=== PATIENT | female | born 1990 | race Caucasian/White ===

== ENCOUNTER 2020-02-08 22:04 | Emergency (ER) | payer OTHER, SELFPAY ==
[2020-02-08 22:05] VITALS: BP 155/95; PULSE 100; RESP 18; TEMP 36.2; O2SAT 99; BMI 41.1
--- NOTE | 2020-02-08 22:40 | ED.VIS.GEN ---
History of Present Illness Chief Complaint: Dental Informant: Patient Narrative: 29-year-old female with no significant past medical history presents with concern for dental pain. States it began over the past 1 day. States that she suffers from bruxism and had fracture to an existing filling on the top right molar. States that she has had aching pain since that time. No relieving or worsening factors. Denies any fever, chills, headache, vision change, neck pain. Past Medical History - Allergies and Home Meds Allergies/Adverse Reactions: Allergies Penicillins [PCN] Adverse Reaction (Verified 02/08/20 22:07) Other Primary Care Physician: Christopher Tran MD [Primary Care Provider] - Past Medical History: None Surgical History: no surgical history Lives: With Family Smoking Status: Light Smoker (<10/day) Alcohol: None Drugs: None Review of Systems General: Denies: Chills, Fever, Sweats Eyes: Denies: Visual changes - bilaterally, Diplopia ENT: Reports: - - Dental pain. Denies: Rhinorrhea, Sore throat Cardiovascular: Denies: Chest pain, Palpitations Respiratory: Denies: Dyspnea, Cough, Dyspnea on exertion Gastrointestinal: Denies: Abdominal pain, Nausea, Vomiting, Diarrhea, Melena, Hematochezia Genitourinary: Denies: Dysuria, Hematuria, Frequency Musculoskeletal: Denies: Back pain, Extremity Pain Skin: Denies: Rash, Wounds Neurological: Denies: Headache, Weakness, Numbness Physical Exam Vital Signs/Narrative: Vital Signs Temp Pulse Resp BP Pulse Ox 02/08/20 22:05 97.2 F L 100 18 155/95 H 99 Inital Vital Signs reviewed: Yes General: Well nourished, Well developed, No Acute Distress Head: Normocephalic, Atraumatic Eyes: Perrl, EOMI ENT: Moist mucous membranes, No rhinorrhea, - - Presents of right first molar filling which is fractured. No evidence of periapical abscess. Neck: Supple, Nontender Cardiovascular: Regular rate, Regular rhythm, No murmurs Respiratory: No distress, CTA bilaterally, Chest nontender Abdomen: Soft, Nontender, Nondistended, Normal bowel sounds Back: Nontender, Normal Inspection Extremities: Nontender, No edema Skin: Normal color, No rash Neurological: Alert, Oriented x3, Cranial nerves II-XII grossly intact, Normal Strength, Normal Sensation Psychological: Normal affect, Normal Mood Diagnostic/Tx/Re-eval - Medical Decision Making Patient appears well and nontoxic. Patient has evidence of a fractured filling. No abscess formation. Dental block was performed using approximately 4 mL's of bupivacaine. She was given intramuscular Toradol as well as first dose of penicillin VK. Patient will be given naproxen and penicillin for home. Asked to return for new or worsening symptoms. Patient agreeable and discharged home in stable condition. Pression: 1. Dental pain 2. Fractured dental filling ED Disposition - Plan for ED Patient: Disposition: Home or Assisted Living Instructions: ED Tooth Pain Referrals: Christopher Tran MD [Primary Care Provider] -
[2020-02-08] MEDS: Ketorolac 15 MG/ML Vial IM (22:47)
[2020-02-08] MEDS: Clindamycin HCl 150 MG Capsule 300 MG PO (22:47)
[2020-02-08] MEDS: Bupivacaine Mpf 0.5% 30 ML VIAL INFILT (23:28)
[2020-02-08 23:42] VITALS: RESP 16
== END 2020-02-08 23:42 | disposition home or self-care (01) ==
PROVIDERS: Emergency Provider Emergency Medicine; PCP Family Medicine
DX: K08.89 Other specified disorders of teeth and supporting structures (principal); S02.5XXA Fracture of tooth (traumatic), initial encounter for closed fracture; X58.XXXA Exposure to other specified factors, initial encounter; Y93.89 Activity, other specified; Y92.9 Unspecified place or not applicable; Y99.9 Unspecified external cause status; F17.200 Nicotine dependence, unspecified, uncomplicated; Z88.0 Allergy status to penicillin
CPT/HCPCS: 64999; 96372; 99283

== ENCOUNTER 2024-05-07 11:09 | Emergency (ER) | payer BC, SELFPAY ==
[2024-05-07 11:10] VITALS: BP 108/75; PULSE 105; RESP 16; TEMP 36.9; O2SAT 98
[2024-05-07 11:12] VITALS: BMI 34.2
--- NOTE | 2024-05-07 11:34 | RAD_ITS ---
INDICATION: Pain/Injury EXAMINATION/TECHNIQUE: X-RAY - LEFT XR Tibia/Fibula 2 Views 2 VIEWS COMPARISON: No relevant prior comparison study available FINDINGS: BONES: The ankle was not completely included in the study, separate ankle series was obtained concurrently and reported separately. Oblique fracture of the distal fibula is partially included and better assessed on the ankle series. No other fracture demonstrated. JOINTS: No dislocation. SOFT TISSUES: Unremarkable. RAD/Tibia & Fibula 2 Views IMPRESSION: Distal fibular fracture partially included. Please see report of ankle series for details. No other evidence of fracture. Electronically Signed: Denisa Sung MD at 12:12 [facility] ,
--- NOTE | 2024-05-07 11:34 | RAD_ITS ---
INDICATION: PAin/Injury EXAMINATION/TECHNIQUE: X-RAY - LEFT XR Ankle Min 3 Views 3 VIEWS COMPARISON: No relevant prior comparison study available FINDINGS: BONES: Acute oblique fracture of the distal fibula with minimal posterior displacement of the distal fragment. Calcaneal spurs at the plantar and posterior Achilles insertion sites. JOINTS: No dislocation. SOFT TISSUES: Soft tissue swelling overlying the lateral malleolus. RAD/Ankle min 3 Views IMPRESSION: Acute distal fibular fracture. Electronically Signed: Denisa Sung MD at 12:10 EST ,
--- NOTE | 2024-05-07 12:05 | EDS_ITS ---
HPI History of Present Illness Chief Complaint: Lower Extremity Injury Narrative Narrative: Chief complaint and HPI: Left ankle injury. 33-year-old female presents for evaluation of left ankle pain after an injury. Patient states she works nights. She states this morning around 3 AM she fell down a couple steps. She immediately developed pain in the left ankle with swelling. Most of her pain is located at her lateral malleolus. Patient states she has been unable to apply weight or ambulation to the ankle. She has been taking ibuprofen. She denies any numbness or tingling. Denies hitting her head. No LOC. Not on blood thinners. Denies injury to any other part of the body. Review of systems: See HPI Medications: As listed on the chart Allergies: As listed on the chart PFSH: Per chart Vital signs: As listed on the chart. Reviewed. Physical exam: Gen: A&O x3, NAD Head: Normocephalic, atraumatic Eyes: No sclera icterus, conjunctiva clear ENT: Moist mucous membranes Neck: Full range of motion CV: Regular rate Resp: Nonlabored respiration Musc: Full ROM of all extremities except for the left ankle secondary to pain, left ankle is swollen with ecchymosis-most of this is located at the lateral malleolus where the patient has tenderness, knee nontender to palpation, DP/PT pulses plus 2 out of 4, sensation intact, good capillary refill, no Achilles tenderness, heel//foot nontender, mild tenderness to palpation of the calf Skin: Warm, dry Neuro: Alert, oriented, grossly intact, sensation intact Psych: Cooperative, appropriate mood and affect [facility] Medical History (Updated 05/07/24 @ 14:[address] Len Bailey, ) Hypercholesteremia Home Medications ?Medication ?Instructions ?Recorded ?Last Taken ?Type fenofibrate nanocrystallized 48 mg 145 mg PO 02/08/20 Unknown History tablet buspirone 10 mg tablet 10 mg PO TID 05/07/24 Unknown History oxycodone 5 mg capsule 5 mg PO Q6H PRN pain 3 days #12 05/07/24 Unknown Rx caps sertraline 100 mg tablet 100 mg PO DAILY 05/07/24 Unknown History varenicline 1 mg tablet 1 mg PO BID 05/07/24 Unknown History Allergy/AdvReac Type Severity Reaction Status Date / Time Penicillins (PCN) AdvReac Other Verified 05/07/24 11:10 Surgical History (Updated 05/07/24 @ 11:17 by Martha Farrell) No pertinent past surgical history Social History Smoking Status: Former smoker EXAM Physical Exam Const Vital Signs: 05/07/24 11:10 05/07/24 14:50 Temperature 98.5 F 98.2 F Temperature Source Oral Pulse Rate 105 H 95 Respiratory Rate 16 18 Blood Pressure 108/75 130/106 H Blood Pressure Mean 86 114 Pulse Ox 98 99 Oxygen Delivery Method Room Air MDM MDM MDM Narrative Medical decision making narrative: 37-year-old female presents for evaluation of left ankle pain after left ankle injury. Differential diagnosis includes fracture versus sprain. X-rays of the left ankle and tib-fib obtained. Patient declined pain medication. X-rays were personally interpreted/reviewed by myself ED physician. Patient has a distal fibula fracture of the left ankle. Patient ordered IM fentanyl. Patient's fracture was reduced and splinted. See below procedure note. Postreduction x- rays ordered. Postreduction x-rays were personally interpreted/reviewed by myself, ED physician. Distal fibula fracture shows improvement in fracture alignment. Patient stable to discharge home. Patient grabbed her crutches from home and brought them in. They were measured appropriately for her. Patient was educated on nonweightbearing. Splint cannot get wet. Follow-up with orthopedics. She confirmed understanding the plan. Tylenol and Motrin as needed for pain. Patient given a short prescription of oxycodone for severe pain. Splint application and fracture reduction Indication: Left distal fibula fracture Consent: Risks, benefits, and alternatives discussed with patient and consent obtained Procedure: The patient was given a total of 50 mcg of fentanyl IM prior to reduction and splint. Reduction was achieved to the best of my abilities utilizing traction technique. Following reduction, immobilization was performed using splint. Patient was placed in a posterior and stirrup splint using cotton roll with extra padding to bony prominences, fiberglass was used with Skip wrap. The extremity's neurovascular status was re-checked and was unchanged from the pre-procedure exam. The patient tolerated the procedure without complications. Impression: 1. Left distal fibula fracture 2. Splinted with reduction Radiography Diagnostic Testing: Clinical Impression(s) from Imaging Studies Ankle X-Ray 05/07/24 11:34 IMPRESSION: Acute distal fibular fracture. Electronically Signed: Denisa Sung MD at 12:10 EST , Tibia/Fibula X-Ray 05/07/24 11:34 IMPRESSION: Distal fibular fracture partially included. Please see report of ankle series for details. No other evidence of fracture. Electronically Signed: Denisa Sung MD at 12:12 EST , Ankle X-Ray 05/07/24 13:40 IMPRESSION: Distal fibular fracture in cast with improved alignment. Electronically Signed: Denisa Sung MD at 14:26 EST , Discharge Plan Triage Chief Complaint: Lower Extremity Injury ED Provider: Len Bailey Dx/Rx/DC Orders Clinical Impression: Fracture of distal end of fibula Instructions: ED Ankle Fracture, ED Ankle Fracture, Distal Fibula Prescriptions: New oxycodone 5 mg capsule 5 mg PO Q6H PRN (Reason: pain) 3 Days Qty: 12 0RF No Action fenofibrate nanocrystallized 48 MG tablet 145 mg PO sertraline 100 mg tablet 100 mg PO DAILY buspirone 10 mg tablet 10 mg PO TID varenicline 1 mg tablet 1 mg PO BID Primary Care Provider: Christopher Tran Referrals: Jesse Gandhi DO [Med Staff - Active Staff] - 3-5 Days Christopher Tran MD [Primary Care Provider] - 3-5 Days Activity Restrictions/Additional Instructions: Ibuprofen and Motrin as needed for pain. Oxycodone for severe pain. Follow-up with orthopedics. You are not to walk or weight-bear on your left leg. Splint needs to remain on at all times and not to get wet. Print Language: Nepali Disposition Disposition: Home, Self Care Discharge Date/Time: 05/07/24 14:57
[2024-05-07] MEDS: fentaNYL 100 MCG/2 ML Ampul 50 MCG IV (13:09)
--- NOTE | 2024-05-07 13:40 | RAD_ITS ---
INDICATION: s/p splint and reduction EXAMINATION/TECHNIQUE: X-RAY - LEFT XR Ankle Min 3 Views 3 VIEWS COMPARISON: Prior study dated: Earlier same day FINDINGS: BONES: Exam through cast. Fracture of the distal fibula again demonstrated, in near-anatomic alignment. JOINTS: No dislocation. SOFT TISSUES: Soft tissue swelling laterally.. RAD/Ankle min 3 Views IMPRESSION: Distal fibular fracture in cast with improved alignment. Electronically Signed: Denisa Sung MD at 14:26 EST ,
[2024-05-07 14:50] VITALS: BP 130/106; PULSE 95; RESP 18; TEMP 36.8; O2SAT 99
== END 2024-05-07 14:57 | disposition home or self-care (01) ==
PROVIDERS: Emergency Provider Surgery; PCP Family Medicine; Visit Provider Surgery
DX: S82.402A Unspecified fracture of shaft of left fibula, initial encounter for closed fracture (principal); Z87.891 Personal history of nicotine dependence; E78.00 Pure hypercholesterolemia, unspecified; W10.9XXA Fall (on) (from) unspecified stairs and steps, initial encounter
CPT/HCPCS: 27788; 73590; 73610; 96374; 99282

== ENCOUNTER 2024-07-10 16:00 | Outpatient (RCR) | payer BC, SELFPAY ==
--- NOTE | 2024-06-26 12:59 | HP.PTEVAL_ITS ---
Patient's Visit Information Visit Information Visit Information: SEBASTIEN FOFANA is a 34 year old F referred to Physical Therapy by Dr. Jesse Gandhi DO with a diagnosis of FRACTURE PF UPPER AND LOWER END LEFT FIBULA. Date of Evaluation: 06/26/24 Physical Therapist: Zev Rider, PT, Cert MDT, OCS Visit Plan Frequency: 2x /Week Duration: 6 Weeks Plan: CAM BOOT WBAT LLE OKAY TO REMOVE FOR THERAPY PT INTERVENTIONS FLEXABILITY G-S ,AROM ANKLE ,STRENGTHENING EX'S ANKLE STABILIZERS , MANUAL THERAPY ANKLE JOINT ,AND PROPRIOCEPTION Subjective Subjective: This 34 y/o female presents to physical therapy with fracture of distal fibula. Patient left fx fibula on 05/07/24 slipped on steps .Went to ER x-rays showed fx fibula fx. Patient was place in splint and kneeling scooter and crutches. Patient seen DR Gandhi Dec [address] hard cast NWB left. Patient seen 05/20/24 cont with NWB LLE and kneeling scooter . Then 05/27/24 removed patients cast and applied a new cast. She will be non-weightbearing for an additional 2 weeks. On 06/12/23 transition into a tall cam boot. Patient continue non weightbearing for another week, then for 1 week she can move to 50% weight bearing, then after another week (3rd week) she can move on to full weight bearing in the boot. She can remove the boot for physical therapy . X-rays looked good. See next Saturday07/03/24 . Patient no pain. Stiffness Denies paresthesia/tingling. Sleeping okay. Patient return to work Saturday. Patient condition affects QOL and function . Patient goals to walk normal. SOCIAL: VOCATION: [employer] Objective Objective: POSTURE: pes planus EDEMA: absent GAIT:ambulates with cam boot WBAT LLE NEURO: denies paresthesia/tingling AROM: dorsiflexion 0 degrees ,inversion 40 degrees ,plantarflexion 50 degrees ,eversion 5 degrees MMT: ( peak force) anterior tibialis 12.7 ,peroneus 10.9 ,G-S 13.9 ,posterior tibialis 11.7 PROPRIOCEPTION: poor FLEXABILITY: G-S mildmod tight Balance/Special Test Scores Lower Extremity Functional Score: 42 Goals Goal 1:: Patient to be I with HEP for ankle Goal Time Frame: 4-6 Weeks Goal 2:: Patient to improve AROM ankle by 5-10 degrees to improve gait Goal Time Frame: 4-6 Weeks Goal 3:: Patient to normalize gait Goal Time Frame: 4-6 Weeks Goal 4:: Patient to improve peak force ankle stabilizers by 5-10 # to improve function Goal Time Frame: 4-6 Weeks Goal 5:: Patient to improve LFES score by 5-10# to improve gait and function. Goal Time Frame: 4-6 Weeks Rehabilitation Potential Physical Therapy Diagnosis: This patient has left distal fibula fx 05/07 with decrease gait ,ROM ,strength and proprioception thus benefit from skilled PT Rehabilitation Potential: Good Anticipated Interventions Patient/Client Instruction: Educate patient on: Condition and Plan of Care For the Purpose of:: To decrease pain, To increase ROM, To improve muscle performance and motor function, To improve ability to perform ADL's, To increase tolerance to activity/condition/position, To improve ability of physical actions for home/community/work/leisure, To improve gait and locomotor functions, To improve health of tissue, To decrease soft tissue restriction, To increase flexibility/ROM, To reduce risk of recurrence and To prevent re-injury Therapeutic Exercise to Include: Strength training, Balance training, Postural training, Flexibilty training, Gait and locomotor training and Active ROM For the Purpose of:: To decrease pain, To increase ROM, To improve nutrient delivery to tissue, To increase oxygenation perfusion, To improve muscle performance and motor function, To improve ability of physical actions for home/community/work/leisure, To improve health of tissue, To decrease soft tissue restriction and To increase flexibility/ROM Manual Therapy Techniques to Include: Mobilization Comment: ANKLE For the Purpose of:: To decrease pain, To increase ROM, To improve muscle performance and motor function, To improve ability to perform ADL's, To increase tolerance to activity/condition/position, To improve ability of physical actions for home/community/work/leisure, To improve gait and locomotor functions, To improve health of tissue, To decrease soft tissue restriction, To increase flexibility/ROM, To improve endurance and To improve balance Text: Thank you for the opportunity to evaluate your patient. For Medicare and Medicare HMO plans, please review the plan of care and approve it. It will need to be FAXED BACK to us at [phone] for Medicare purposes. For Medicare only, by signing this I certify the plan of care. Please let me know if there are questions or concerns regarding this plan of care. Physician Signature: Date:
--- NOTE | 2024-10-14 09:04 | HP.PTDCNRP_ITS ---
Patient Information Patient Information: SEBASTIEN FOFANA was seen in my office for initial evaluation on 06/26/24. The following Plan of Care was established for this patient: POC Established Initial Frequency: 2x /Week Initial Duration: 6 Weeks Anticipated Interventions Patient/Client Instruction: Educate patient on: Condition and Plan of Care For the Purpose of:: To decrease pain, To increase ROM, To improve muscle performance and motor function, To improve ability to perform ADL's, To increase tolerance to activity/condition/position, To improve ability of physical actions for home/community/work/leisure, To improve gait and locomotor functions, To improve health of tissue, To decrease soft tissue restriction, To increase flexibility/ROM, To reduce risk of recurrence and To prevent re-injury Therapeutic Exercise to Include: Strength training, Balance training, Postural training, Flexibilty training, Gait and locomotor training and Active ROM For the Purpose of:: To decrease pain, To increase ROM, To improve nutrient delivery to tissue, To increase oxygenation perfusion, To improve muscle performance and motor function, To improve ability of physical actions for home/community/work/leisure, To improve health of tissue, To decrease soft tissue restriction and To increase flexibility/ROM Manual Therapy Techniques to Include: Mobilization Comment: ANKLE For the Purpose of:: To decrease pain, To increase ROM, To improve muscle pe rformance and motor function, To improve ability to perform ADL's, To increase tolerance to activity/condition/position, To improve ability of physical actions for home/community/work/leisure, To improve gait and locomotor functions, To improve health of tissue, To decrease soft tissue restriction, To increase flexibility/ROM, To improve endurance and To improve balance Last Seen Last Seen: This patient was last seen in our office . Pertinent comments regarding their Physical therapy will appear below: Patient seen for PT for fx of fibula for HEP for ROM,strength and gait thus is d/c At this point I will be discontinuing this patient from physical therapy. I would be happy to see this patient again in the future if found appropriate by the physician. Thank you! Zev Rider, PT, Cert MDT, OCS Balance/Gait/Functional tests Balance/Special Test Scores Lower Extremity Functional Score: 42
== END 2024-07-10 19:00 | disposition home or self-care (01) ==
LOC: PT 16:00
PROVIDERS: PCP Family Medicine; Referring Provider Orthopaedic Surgery; Visit Provider Orthopaedic Surgery
DX: S82.832D Other fracture of upper and lower end of left fibula, subsequent encounter for closed fracture with routine healing (principal)
CPT/HCPCS: 97110; 97161

== ENCOUNTER 2024-07-17 01:48 | Emergency (ER) | payer BC, SELFPAY ==
[2024-07-17 01:49] VITALS: BP 146/94; PULSE 82; RESP 18; TEMP 36.9; O2SAT 98; BMI 33.5
[2024-07-17 02:08] LABS: Bacteria 0 SEEN /hpf (None Seen); Mucous, Urine 0 SEEN /hpf (<or=2+); Red Blood Cells-Urine 0 SEEN /hpf (0-5); Squamous Epithelial Cells - UA 0 SEEN /hpf (5-10)
[2024-07-17 02:10] LABS: Absolute Lymphocyte Count 5.03 X10^3/uL (0.83-4.51); Absolute Neutrophil Count 3.8 X10^3/uL (2.0-7.7); Basophil# 0.08 X10^3/uL; Basophil% 0.8 % (0-1); Eosinophil# 0.14 X10^3/uL; Eosinophils% 1.4 % (0-5); Hematocrit 39.3 % (37-47); Lymphocyte # 5.03 X10^3/ul (0.83-4.51); Lymphocyte % 50.6 % (19-41); Mean Corp Hgb Conc 33.1 g/dL (32-36); Mean Corpuscular Hgb 31.2 pg (27.0-32.0); Mean Corpuscular Volume 94.2 fL (81-99); Mean Platelet Vol. 8.9 fl (6.2-12.0); Monocyte# 0.87 X10^3/uL; Monocyte% 8.8 % (0-10); NRBC Flagged by Analyzer 0 % (0-5); Neutrophil # 3.79 X10^3/uL (2.7-7.7); Neutrophil % 38.1 % (47-70); POSITIVE DIFFERENTIAL YES; Platelet Count 374 K/mm3 (150-450); RBC Distribution Width CV 13.1 % (11.6-14.6); RBC Distribution Width SD 45.2 fl (35.1-43.9); Red Blood Count 4.17 M/mm3 (4.2-5.4); White Blood Count 9.9 K/mm3 (4.4-11.0)
--- NOTE | 2024-07-17 02:11 | ED.VIS.GI ---
HPI HPI - GI History of Present Illness Chief Complaint: Abd Pain Informant: patient and spouse/S.O. Narrative Narrative: Presents increasing epigastric abdominal pain over the last couple hours. She ate [employer] peanut butter cups prior. Prior to that I had toes. She first noticed symptoms back in 2013 pain that wraps around her upper abdomen. She was never evaluated. She been having more increased frequency over the last 6 months. She states pain will come in the middle of the night. She has been using [id number] acid reducers. Denies black or bloody stools. Denies any urinary symptoms. Last menstrual period 2 months ago, states she is abnormal. Denies nausea or vomiting. Prior similar symptoms: Yes PFSH [facility] Medical History Depression Anxiety Hypercholesteremia Home Medications ?Medication ?Instructions ?Recorded ?Last Taken ?Type sertraline 100 mg tablet 100 mg PO DAILY 05/07/24 Unknown History atomoxetine 40 mg capsule 40 mg PO QAM 05/11/24 Unknown History rosuvastatin 10 mg tablet 10 mg PO QHS 05/11/24 Unknown History buspirone 15 mg tablet 15 mg PO 3XD 07/17/24 Unknown History cholecalciferol (vitamin D3) 1,250 1,250 mcg PO QWEEK 07/17/24 Unknown History mcg (50,000 unit) capsule doxycycline monohydrate 100 mg 100 mg PO BID 07/17/24 Unknown History tablet fenofibrate nanocrystallized 145 145 mg PO DAILY 07/17/24 Unknown History mg tablet Allergy/AdvReac Type Severity Reaction Status Date / Time Penicillins (PCN) AdvReac Other Verified 07/17/24 01:48 Surgical History No pertinent past surgical history Social History Smoking Status: Former smoker ROS ROS ED Constitutional Constitutional ED: Denies chills, fever(s) or sweats ENT ENT ED: Denies sore throat Cardiovascular Cardiovascular: Denies chest pain, leg edema, palpitations or racing heartbeat Respiratory/Chest Respiratory/Chest: Denies cough, dyspnea or dyspnea on exertion Gastrointestinal Gastrointestinal: Reports abdominal pain; Denies diarrhea, nausea or vomiting Genitourinary Genitourinary ED: Denies dysuria, hematuria or urinary frequency Musculoskeletal Musculoskeletal: Denies back pain, extremity pain or neck pain Integumentary Denies rash or wounds Neurologic Neurologic: Denies headache(s), paresthesias or weakness EXAM Physical Exam Const Vital Signs: 07/17/24 01:49 07/17/24 02:41 Temperature 98.4 F Temperature Source Oral Pulse Rate 82 79 Respiratory Rate 18 16 Blood Pressure 146/94 H 134/90 H Blood Pressure Mean 111 104 Pulse Ox 98 96 Oxygen Delivery Method Room Air Room Air Positive well nourished and well developed General Appearance ED: well developed and NAD HEENT Reports moist mucous membranes normocephalic and atraumatic Eyes General Eye ED: Yes normal appearance of both eyes Neck full ROM Chest Wall Chest: Negative for tenderness Resp normal respiratory effort and normal air movement Effort and Inspection: symmetric chest movement; Negative for respiratory distress Cardio regular rate, regular rhythm and no murmurs Peripheral Pulses: pulses 2+ throughout GI normal to inspection, nondistended, normoactive bowel sounds GI Narrative: Mild epigastric tenderness. No guarding or rebound. Negative Ayala's or McBurney's tenderness. Palpation: Negative for guarding or rebound tenderness present Extremity normal to inspection General Extremety ED: Negative for edema or tenderness General Extremity: Negative for edema Neuro oriented x3 and no sensory deficits noted Sensorium / Orientation: awake and alert Skin no rashes or lesions noted and no wounds MDM MDM MDM Narrative Medical decision making narrative: Interventions / MDM: Differential diagnosis: Gastritis, biliary colic Diagnosis considered but do not suspect: No clinical cholecystitis My EKG interpretation: N/A Imaging independently reviewed and interpreted by myself: N/A External documents reviewed: N/A Test considered but not ordered:N/A ED course: Epigastric tenderness exam. Symptoms started after eating milk chocolate. Symptoms subsiding. Negative Ayala's or McBurney's tenderness. Will check abdominal labs, Pepcid ordered. Will reevaluate. 0245: Symptoms subsided labs are normal. Patient reports her symptoms seem to occur couple hours after she eats. Discussed could be a early biliary colic symptoms. She has no clinical cholecystitis. Discussed with her she is using her omeprazole only as needed. She should be on this daily. She has a follow-up with her PCP tomorrow discussed outpatient ultrasound for further evaluation. She will avoid greasy foods, fatty foods, dairy foods in the meantime. All questions were answered. Re-evaluation: stable Disposition discussed with patient/family/significant other: Patient and significant other Case discussed with consulting clinician: N/A This note was generated with [employer] dictation software. It may contain incorrect words, spelling, and punctuation that were not noted in checking the note before signing. Lab Data Attestation: I reviewed the patient's lab results. Labs: Laboratory Results - last 24 hr 07/17/24 07/17/24 01:50 02:04 WBC 9.9 RBC 4.17 L Hgb 13.0 Hct 39.3 MCV 94.2 MCH 31.2 MCHC 33.1 RDW Std Deviation 45.2 H RDW Coeff of Jose Luis 13.1 Plt Count 374 MPV 8.9 Immature Gran % (Auto) 0.300 Neut % (Auto) 38.1 L Lymph % (Auto) 50.6 H [place] % (Auto) 8.8 Eos % (Auto) 1.4 Baso % (Auto) 0.8 Absolute Neuts (auto) 3.8 Absolute Lymphs (auto) 5.03 H Nucleated RBC % 0 Differential Comment SCANNED Reactive Lymphocytes 2+ Sodium 140 Potassium 3.6 Chloride 106 Carbon Dioxide 29.0 Anion Gap 5 BUN 21 H Creatinine 1.02 Estim Creat Clear Calc 83.79 Est GFR (MDRD) Af Amer 80 Est GFR (MDRD) Non-Af 66 BUN/Creatinine Ratio 20.6 H Glucose 88 Calcium 9.5 Total Bilirubin 0.20 Direct Bilirubin 0.07 AST 15 ALT 23 Alkaline Phosphatase 61 Total Protein 7.6 Albumin 4.0 Globulin 3.6 Lipase 77 Urine Color Yellow Urine Clarity Clear Urine pH 7.0 Ur Specific [place] 1.010 Urine Protein Negative Urine Glucose (UA) Normal Urine Ketones Negative Urine Occult Blood Negative Urine Nitrite Negative Urine Bilirubin Negative Urine Urobilinogen Normal Ur Leukocyte Esterase Negative Urine RBC 0 SEEN Urine WBC 0 SEEN Ur Squamous Epith Cells 0 SEEN Urine Bacteria 0 SEEN Urine Mucus 0 SEEN Urine Test Negative Discharge Plan Triage Chief Complaint: Abd Pain ED Provider: Ras Chua Dx/Rx/DC Orders Clinical Impression: Gastritis, Biliary colic symptom Instructions: ED Gastritis (Adult) Prescriptions: No Action rosuvastatin 10 mg tablet 10 mg PO QHS atomoxetine 40 mg capsule 40 mg PO QAM buspirone 15 mg tablet 15 mg PO 3XD cholecalciferol (vitamin D3) 1,250 mcg (50,000 unit) capsule 1,250 mcg PO QWEEK doxycycline monohydrate 100 mg tablet 100 mg PO BID fenofibrate nanocrystallized 145 mg tablet 145 mg PO DAILY sertraline 100 mg tablet 100 mg PO DAILY Primary Care Provider: Christopher Tran Referrals: Christopher Tran MD [Primary Care Provider] - Keep [place] appointment Activity Restrictions/Additional Instructions: Labs normal white count normal lipase normal liver enzymes normal pain epigastrium. Taking continue your [id number] omeprazole daily. Discussed with your doctor outpatient gallbladder ultrasound for further evaluation for possible colic symptoms symptoms occur couple hours after you eat. Avoid greasy foods, dairy foods, fatty foods. Print Language: Mongolian Disposition Disposition: Home, Self Care
[2024-07-17 02:12] LABS: Glucose, Dipstick Normal (Normal); Ketone-Dipstick Negative (Negative); Leukocyte Esterase-Dipstick Negative /ul (Negative); Nitrite-Dipstick Negative (Negative); Occult Blood-Urine Negative /ul (Negative); Protein-Dipstick Negative (Negative); Urine Bilirubin Dipstick Negative (Negative); Urine Clarity Clear (Clear); Urine Urobilinogen Normal (Normal)
[2024-07-17 02:12] LABS: Differential Indicated SCAN CRITERIA MET
[2024-07-17] MEDS: Famotidine 200 MG/20 ML MDV 20 MG in 0.9% Normal Saline (Pres. free 8 ML 300 MG IV (02:13)
[2024-07-17 02:19] LABS: Color, Urine Yellow (Yellow); White Blood Cells 0 SEEN /hpf (0-5)
[2024-07-17 02:20] LABS: Internal QC Validated? YES +Cl - CLEAR BKGD; Pregnancy, Urine Negative Negative
[2024-07-17 02:29] LABS: AST(SGOT) 15 U/L (15-37); Alanine Aminotransfer ALT/SGPT 23 U/L (13-56); Alkaline Phosphatase 61 U/L (45-117); Anion Gap 5 (5-15); BUN 21 mg/dL (7-18); BUN/Creat Ratio 20.6 RATIO (10-20); Bilirubin, Direct 0.07 mg/dL (0.00-0.30); Calcium,Total 9.5 mg/dL (8.5-10.1); Chloride 106 mmol/L (98-107); Creatinine, Serum 1.02 mg/dL (0.55-1.02); EST Glomerular Filtration Rate 66 mL/min (>60); Est Glom Filt Rate - Afr Amer 80 mL/min (>60); Estimated Creatinine Clearance 83.79 ml/min; Globulin 3.6 g/dL (2.2-4.2); Glucose 88 mg/dL (74-106); Lipase 77 U/L (73-393); Potassium 3.6 mmol/L (3.5-5.1); Protein, Total 7.6 g/dL (6.4-8.2); Sodium Level 140 mmol/L (136-145)
[2024-07-17 02:33] LABS: Differential Comment SCANNED; Reactive Lymphocyte 2+
[2024-07-17 02:41] VITALS: BP 134/90; PULSE 79; RESP 16; O2SAT 96
== END 2024-07-17 02:58 | disposition home or self-care (01) ==
PROVIDERS: Emergency Provider Emergency Medicine; PCP Family Medicine; Visit Provider Emergency Medicine
DX: K29.70 Gastritis, unspecified, without bleeding (principal); Z87.891 Personal history of nicotine dependence; E78.00 Pure hypercholesterolemia, unspecified; F41.9 Anxiety disorder, unspecified; F32.A Depression, unspecified; K80.50 Calculus of bile duct without cholangitis or cholecystitis without obstruction
CPT/HCPCS: 80048; 80076; 81001; 81025; 82653; 83630; 83690; 83993; 85025; 87177; 87209; 87493; 87506; 99282; A4216

== ENCOUNTER 2024-09-16 16:00 | Outpatient (CLI) | payer BC, SELFPAY ==
[2024-09-19 01:07] LABS: Calprotectin, Stool 22 ug/g (0-120)
[2024-09-21 01:06] LABS: Pancreatic Elastase, Fecal > 800 (>200)
== END 2024-09-16 23:59 | disposition home or self-care (01) ==
LOC: LABSPEC 09-23 08:46
PROVIDERS: PCP Nurse Practitioner Family; Visit Provider Student in an Organized Health Care Education/Training Program
DX: K21.9 Gastro-esophageal reflux disease without esophagitis (principal); R10.9 Unspecified abdominal pain; R11.2 Nausea with vomiting, unspecified; R19.7 Diarrhea, unspecified
CPT/HCPCS: 82653; 83630; 83993; 87177; 87209; 87493; 87506

== ENCOUNTER → 2024-09-25 | Outpatient (CLI) | payer BC, SELFPAY ==
--- NOTE | 2024-09-25 12:12 | NM_ITS ---
PROCEDURE: HEPATOBILLIARY IMG W/PHARM INT 09/25/2024 REASON FOR EXAM: ABDOMINAL PAIN TECHNIQUE: Intravenous Choletec with planar imaging of the abdomen. 1.7 mcg Kinevac intravenously approximately 60 minutes after the radiopharmaceutical with additional anterior imaging and a region of interest drawn around the gallbladder to calculate a time-activity curve. RADIOPHARMACEUTICAL: 5.4 mCi of technetium mebrofenin COMPARISON: None. FINDINGS: There is good uptake of the radiopharmaceutical by the liver. Normal gallbladder visualization with the gallbladder identified by 30 minutes. Gallbladder Ejection Fraction: 21 % (Normal is >35%) NM/Hepatobilliary Img w/Pharm Int IMPRESSION: Decreased gallbladder ejection fraction. Reading Location: [id number]
== END | disposition home or self-care (01) ==
LOC: NM 12:11
PROVIDERS: PCP Nurse Practitioner Family; Referring Provider Student in an Organized Health Care Education/Training Program; Visit Provider Student in an Organized Health Care Education/Training Program
DX: R10.9 Unspecified abdominal pain (principal)
CPT/HCPCS: 78227; A9537; J2805

== ENCOUNTER → 2024-09-30 | Outpatient (CLI) | payer BC, SELFPAY ==
--- NOTE | 2024-09-30 10:13 | NM_ITS ---
PROCEDURE: GASTRIC EMPTYING STUDY 09/30/2024 REASON FOR EXAM: NAUSEA COMPARISON: None. TECHNIQUE: The patient ingested a standard meal of oatmeal and 1.2 mCi of technetium labeled sulfur colloid., and water. There was no vomiting postprandially. Anterior and posterior planar images of the upper abdomen were obtained for 1 minute immediately following the meal at 1h, 2h and 4h if more than 10% of the activity persisted within the stomach. Regions of interest were drawn, and a geometric mean was used to calculate a [id number]. RADIOPHARMACEUTICAL: 1.2 mCi of technetium sulfur colloid. FINDINGS: Percent activity remaining in stomach: 1 hour 55 % (normal 37-90%) NM/Gastric Emptying Study IMPRESSION: Normal gastric emptying examination. Reading Location: [place] [id number]
== END | disposition home or self-care (01) ==
LOC: NM 10:13
PROVIDERS: PCP Nurse Practitioner Family; Referring Provider Student in an Organized Health Care Education/Training Program; Visit Provider Student in an Organized Health Care Education/Training Program
DX: R10.9 Unspecified abdominal pain (principal); R11.0 Nausea
CPT/HCPCS: 78264; A9541

== ENCOUNTER → 2024-10-13 | Outpatient (CLI) | payer BC, SELFPAY ==
[2024-10-13 09:45] LABS: Hematocrit 38.8 % (37-47); Hemoglobin 12.9 g/dL (12.0-15.0); Mean Corp Hgb Conc 33.2 g/dL (32-36); Mean Corpuscular Hgb 30.8 pg (27.0-32.0); Mean Corpuscular Volume 92.6 fL (81-99); Mean Platelet Vol. 9.1 fl (6.2-12.0); Platelet Count 307 K/mm3 (150-450); RBC Distribution Width CV 12.8 % (11.6-14.6); RBC Distribution Width SD 43.2 fl (35.1-43.9); Red Blood Count 4.19 M/mm3 (4.2-5.4); White Blood Count 4.6 K/mm3 (4.4-11.0)
[2024-10-13 10:44] LABS: Anion Gap 9 (5-15); BUN 11 mg/dL (4-19); BUN/Creat Ratio 10.8 RATIO (10-20); Calcium,Total 9.2 mg/dL (7.6-11.0); Chloride 105 mmol/L (98-108); Creatinine, Serum 0.97 mg/dL (0.70-1.20); EST Glomerular Filtration Rate 78 (>60); Glucose 106 mg/dL (70-99); Potassium 4.3 mmol/L (3.3-5.1); Sodium Level 139 mmol/L (133-145); hCG Titer Quant., Serum < 1 mIU/mL (<9 non-preg)
--- NOTE | 2024-10-13 17:38 | PCM.TILTTABL ---
Staff Staff: Cara Goel and Enma Cruz Summary Pre Test Resting HR: 77 Pre Test Resting BP: 131/86 Minimum Test HR: 89 Maximum Test HR: 120 Minimum Test BP: 105/78 Maximum Test BP: 129/84 Reason for Test Termination: Reached Maximum Test Time Physician Tilt Table Report Patient's Physicians Primary Care Physician: Renetta Dunn Indications/Diagnosis: Dizziness Procedure Comments: 34-year-old lady with a history of recurrent dizziness. Patient presents to the noninvasive lab in the postabsorptive nonsedated state. Informed consent was obtained. Initial heart rate and blood pressure were obtained with a heart rate of 77 bpm in sinus rhythm and a blood pressure of 131/86 mmHg. The patient was then put in the 70 degree head upright tilt position for a total duration of 30 minutes. Continuous EKG monitoring was performed as well as heart rate and blood pressures. The patient maintained stable blood pressures with no significant changes from baseline to warrant hemodynamic changes. In addition the heart rate asa gradually to a peak of 120 bpm after approximately 20 minutes. The patient was then put back in the recumbent position and recovered. No significant symptomatology was noted. Summary: Negative head upright tilt table testing.
[2024-10-13 17:41] VITALS: BP 105/78; BP 129/84; BP 131/86
== END | disposition home or self-care (01) ==
PROVIDERS: Internal Medicine Cardiovascular Disease; PCP Nurse Practitioner Family; Referring Provider Internal Medicine Cardiovascular Disease; Visit Provider Internal Medicine Cardiovascular Disease
DX: I95.1 Orthostatic hypotension (principal)
CPT/HCPCS: 36415; 80048; 84702; 85027; 93660; A4216

== ENCOUNTER 2024-10-18 19:08 | Emergency (ER) | payer BC, SELFPAY ==
[2024-10-18 19:09] VITALS: BP 153/103; PULSE 71; RESP 18; TEMP 36.9; O2SAT 100; BMI 30.9
--- NOTE | 2024-10-18 19:33 | ED.VIS.GI ---
HPI HPI - GI History of Present Illness Chief Complaint: Abd Pain Informant: patient and spouse/S.O. Narrative Narrative: 34-year-old female presenting with diffuse abdominal pain that started gradually today/tonight. She had a laparoscopic cholecystectomy 2 days ago at [facility], spouse provides much of the history, the patient is whispering single word sentences and information from her is extremely limited. Spouse states she has not eaten anything since her surgery, she has been drinking very little in the way of fluids, she has not passed bowel movement or flatus yet, and has taken none of her medications. She also had a headache earlier although she states that is gone now. She states she put her abdominal binder on earlier in the pain started while that was on started getting worse and she developed contractures of her hands, so she took it off but now the pain is escalated. [facility] Medical History (Updated 10/18/24 @ 22:[address] Lalo Byrne MD) Polycystic ovary disease Heart valve problem Liver disease GI problem Depression Anxiety Hypercholesteremia Home Medications ?Medication ?Instructions ?Recorded ?Last Taken ?Type sertraline 100 mg tablet 100 mg PO DAILY 05/07/24 Unknown History atomoxetine 40 mg capsule 40 mg PO QAM 05/11/24 Unknown History rosuvastatin 10 mg tablet 10 mg PO QHS 05/11/24 Unknown History buspirone 15 mg tablet 15 mg PO 3XD 07/17/24 Unknown History cholecalciferol (vitamin D3) 1,250 1,250 mcg PO QWEEK 07/17/24 Unknown History mcg (50,000 unit) capsule doxycycline monohydrate 100 mg 100 mg PO BID 07/17/24 Unknown History tablet fenofibrate nanocrystallized 145 145 mg PO DAILY 07/17/24 Unknown History mg tablet omeprazole 20 mg capsule,delayed 20 mg PO BID 09/04/24 Unknown History release Allergy/AdvReac Type Severity Reaction Status Date / Time Penicillins (PCN) AdvReac Other Verified 10/18/24 19:14 Family History Other Alcoholism Asthma Heart disease Hypertension Sexually transmitted disease Surgical History (Updated 10/18/24 @ 19:[address] Lalo Byrne MD) Hx laparoscopic cholecystectomy Social History Smoking Status: Former smoker ROS ROS ED Review of Systems ROS Unobtainable: other Details: Limited history from patient, see HPI Constitutional Constitutional ED: Reports sweats; Denies chills or fever(s) ENT ENT ED: Denies sore throat Cardiovascular Cardiovascular: Denies chest pain Respiratory/Chest Respiratory/Chest: Denies dyspnea Gastrointestinal Gastrointestinal: Reports abdominal pain and other Details: Try eating during evaluation but not prior Genitourinary Genitourinary ED: Denies dysuria or hematuria Musculoskeletal Musculoskeletal: Denies back pain or neck pain Integumentary Denies rash Neurologic Neurologic: Reports headache(s); Denies paresthesias or weakness EXAM Physical Exam Const Vital Signs: 10/18/24 19:09 10/18/24 20:03 10/18/24 21:00 Temperature 98.5 F 98.1 F 98.2 F Temperature Source Oral Oral Oral Pulse Rate 71 68 56 L Respiratory Rate 18 14 16 Blood Pressure 153/103 H 164/83 H 169/93 H Blood Pressure Mean 119 110 118 Pulse Ox 100 100 100 Oxygen Delivery Method Room Air Room Air Room Air Positive well nourished and well developed General Appearance ED: well developed HEENT Reports moist mucous membranes normocephalic and atraumatic Eyes PERRL and EOMs intact bilaterally Neck full ROM and supple Resp normal respiratory effort and clear to auscultation bilaterally Cardio regular rate, regular rhythm and no murmurs Rate: Negative for tachycardic GI non-distended GI Narrative: No rebound tenderness but diffusely tender Auscultation: hypoactive bowel sounds Palpation: soft Back/Spine no CVA tenderness General Back: other FROM Extremity normal to inspection General Extremety ED: Negative for edema, pulses abnormal or tenderness General Extremity: Negative for edema or pulses abnormal Neuro oriented x3, CN's II-XII intact bilaterally and no sensory deficits noted Sensorium / Orientation: awake and alert Motor Exam: strength 5/5 throughout Psych Mood & Affect: anxious Skin no rashes or lesions noted and no wounds MDM MDM MDM Narrative Medical decision making narrative: She is indeed hypokalemic with a potassium of 2.9, which explains the flexion contracture she was having of her hands, so while treating her pain and nausea and given IV fluids we were treating that with IV potassium chloride, and she was sent for a CT of the abdomen/pelvis. I reviewed the images and the report which I agree with, it essentially shows nothing acute, there are postoperative changes that are not unexpected such as a little stranding in the gallbladder fossa and small foci of pneumoperitoneum, as well as a significant abundance of stool in the colon. It is possible that her pain was from bowel spasm. It is possible that her hypokalemia contributed to this. However after treatment here as well as a dose of IV potassium chloride, she is doing better. She tolerating oral fluids. I see no reason to admit her or transfer her back to [facility] right now. I advised her to call her surgeon tomorrow for close outpatient follow-up and to continue to take stool softeners and laxatives and/or enemas. Lab Data Attestation: I reviewed the patient's lab results. Labs: Laboratory Results - last 24 hr 10/18/24 19:55 WBC 13.5 H RBC 4.38 Hgb 13.5 Hct 38.9 MCV 88.8 MCH 30.8 MCHC 34.7 RDW Std Deviation 41.1 RDW Coeff of Jose Luis 12.5 Plt Count 361 MPV 9.4 Immature Gran % (Auto) 0.800 Neut % (Auto) 73.4 H Lymph % (Auto) 17.3 L [place] % (Auto) 8.3 Eos % (Auto) 0.1 Baso % (Auto) 0.1 Absolute Neuts (auto) 9.9 H Absolute Lymphs (auto) 2.33 Nucleated RBC % 0 Sodium 137 Potassium 2.9 L Chloride 99 Carbon Dioxide 17.7 L Anion Gap 20 H BUN 14 Creatinine 0.81 Estim Creat Clear Calc 101.19 Est GFR (MDRD) Non-Af 98 BUN/Creatinine Ratio 17.0 Glucose 140 H Calcium 9.9 Total Bilirubin 1.17 AST 94 H ALT 109 H Alkaline Phosphatase 71 Total Protein 7.6 Albumin 4.0 Globulin 3.5 Albumin/Globulin Ratio 1.1 Lipase 21 Radiography Diagnostic Testing: Clinical Impression(s) from Imaging Studies Abdomen/Pelvis CT 10/18/24 21:17 IMPRESSION: 1. Postoperative changes cholecystectomy with expected immediate postsurgical findings, including small amount of fluid and soft tissue stranding within the gallbladder fossa, scattered foci of pneumoperitoneum and small abdominopelvic ascites. 2. Moderate colonic stool. Reading [facility] Discharge Plan Triage Chief Complaint: Abd Pain ED Provider: Lalo Byrne Dx/Rx/DC Orders Clinical Impression: Postoperative generalized abdominal pain, Acute hypokalemia Instructions: ED Hypokalemia Prescriptions: No Action rosuvastatin 10 mg tablet 10 mg PO QHS atomoxetine 40 mg capsule 40 mg PO QAM omeprazole 20 mg capsule,delayed release(DR/EC) 20 mg PO BID buspirone 15 mg tablet 15 mg PO 3XD cholecalciferol (vitamin D3) 1,250 mcg (50,000 unit) capsule 1,250 mcg PO QWEEK doxycycline monohydrate 100 mg tablet 100 mg PO BID fenofibrate nanocrystallized 145 mg tablet 145 mg PO DAILY sertraline 100 mg tablet 100 mg PO DAILY Primary Care Provider: Renetta Dunn Referrals: Your surgeon [Other] - As soon as possible Renetta Dunn, [employer] [Primary Care Provider] - Activity Restrictions/Additional Instructions: Try to limit your intake of prescription narcotics, this makes constipation worse. Make sure you are taking a stool softener and/or MiraLAX, as long as you are drinking plenty of fluids you cannot take too much MiraLAX. Print Language: Swedish Disposition Disposition: Home, Self Care
[2024-10-18] MEDS: Ondansetron 4 MG/2 ML Vial IV (19:59)
[2024-10-18] MEDS: 0.9% Normal Saline (1000mL) 1,000 ML 999 ML IV (19:59)
[2024-10-18] MEDS: Morphine 4 MG/ML Syringe IV (20:00)
[2024-10-18 20:03] VITALS: BP 164/83; PULSE 68; RESP 14; TEMP 36.7; O2SAT 100
[2024-10-18 20:10] LABS: Absolute Lymphocyte Count 2.33 X10^3/uL (0.83-4.51); Absolute Neutrophil Count 9.9 X10^3/uL (2.0-7.7); Basophil# 0.02 X10^3/uL; Basophil% 0.1 % (0-1); Eosinophil# 0.02 X10^3/uL; Eosinophils% 0.1 % (0-5); Hematocrit 38.9 % (37-47); Hemoglobin 13.5 g/dL (12.0-15.0); Lymphocyte # 2.33 X10^3/ul (0.83-4.51); Lymphocyte % 17.3 % (19-41); Mean Corp Hgb Conc 34.7 g/dL (32-36); Mean Corpuscular Hgb 30.8 pg (27.0-32.0); Mean Corpuscular Volume 88.8 fL (81-99); Mean Platelet Vol. 9.4 fl (6.2-12.0); Monocyte# 1.12 X10^3/uL; Monocyte% 8.3 % (0-10); NRBC Flagged by Analyzer 0 % (0-5); Neutrophil # 9.89 X10^3/uL (2.7-7.7); Neutrophil % 73.4 % (47-70); Platelet Count 361 K/mm3 (150-450); RBC Distribution Width CV 12.5 % (11.6-14.6); RBC Distribution Width SD 41.1 fl (35.1-43.9); Red Blood Count 4.38 M/mm3 (4.2-5.4); White Blood Count 13.5 K/mm3 (4.4-11.0)
[2024-10-18 20:33] LABS: Lipase 21 U/L (13-75)
[2024-10-18 20:40] LABS: ALB/GLOB Ratio 1.1 RATIO (0.9-2.4); AST(SGOT) 94 U/L (<=31); Alanine Aminotransfer ALT/SGPT 109 U/L (<=34); Alkaline Phosphatase 71 U/L (35-104); Anion Gap 20 (5-15); BUN 14 mg/dL (4-19); Calcium,Total 9.9 mg/dL (7.6-11.0); Carbon Dioxide 17.7 mmol/L (21.0-32.0); Chloride 99 mmol/L (98-108); Creatinine, Serum 0.81 mg/dL (0.70-1.20); EST Glomerular Filtration Rate 98 (>60); Estimated Creatinine Clearance 101.19 ml/min (50-250); Globulin 3.5 g/dL (2.2-4.2); Glucose 140 mg/dL (70-99); Potassium 2.9 mmol/L (3.3-5.1); Protein, Total 7.6 g/dL (5.9-8.4); Sodium Level 137 mmol/L (133-145); Total Bilirubin 1.17 mg/dL (0.00-1.30)
[2024-10-18 21:00] VITALS: BP 169/93; PULSE 56; RESP 16; TEMP 36.8; O2SAT 100
[2024-10-18] MEDS: HYDROmorphone 0.5 MG/0.5 ML SYRINGE IV (21:08)
--- NOTE | 2024-10-18 21:17 | CT_ITS ---
PROCEDURE: ABDOMEN/PELVIS W IV CONT ONLY 10/18/2024 REASON FOR EXAM: DIFFUSE ABD PAIN TECHNIQUE: Abdomen and pelvis CT with intravenous contrast. Coronal and Sagittal reconstruction series were provided. PATIENT PREPARATION: Per protocol ORAL CONTRAST TYPE: None. AMOUNT: mL CONTRAST: Omnipaque 350 VOLUME: 100 mL Not Provided Gauge IV One or more dose reduction techniques were used (e.g., Automated exposure control, adjustment of the mA and/or kV according to patient size, use of iterative reconstruction technique. COMPARISON: None FINDINGS: Lung bases: Unremarkable Liver: Normal size. No mass. Gallbladder: No ductal dilation. Postoperative changes cholecystectomy. Small amount of fluid and soft tissue stranding noted within the gallbladder fossa and in the perihepatic regions. Spleen: Normal size. Pancreas: Normal size without evidence of mass surrounding inflammation or ductal dilation. Adrenals: Unremarkable Kidneys: Subcentimeter low-attenuation lesions, too small to characterize and likely benign. No suspicious mass or abnormal enhancement. No calculi or hydronephrosis. Bladder: Urinary bladder is unremarkable. Reproductive Organs: Bilateral adnexal cysts on the right measures 3.5 x 3.3 cm and on the left measures 3.4 x 3.7 cm. Bowel: Stomach is unremarkable. No bowel dilation or significant wall thickening. Moderate colonic stool. Appendix: Normal appendix. Lymph nodes: Unremarkable. Vasculature: The abdominal aorta and IVC are normal. Peritoneum / Retroperitoneum: Small abdominopelvic ascites, likely from recent surgery. Scattered foci of pneumoperitoneum, also likely secondary to postoperative changes. Bones: No acute osseous abnormality. CT/Abdomen/Pelvis W IV Cont ONLY IMPRESSION: 1. Postoperative changes cholecystectomy with expected immediate postsurgical f indings, including small amount of fluid and soft tissue stranding within the gallbladder fossa, scattered foci of pneumoperitone um and small abdominopelvic ascites. 2. Moderate colonic stool. Reading Location: [facility]
[2024-10-18] MEDS: Potassium Chloride 10mEq/100mL 10 MEQ/100 ML IV.SOLN. 100 MEQ IV BOLUS (21:44)
[2024-10-18 22:40] VITALS: BP 161/95; PULSE 95; RESP 16; TEMP 36.7; O2SAT 100
== END 2024-10-18 22:47 | disposition home or self-care (01) ==
PROVIDERS: Emergency Provider Emergency Medicine; PCP Nurse Practitioner Family; Visit Provider Emergency Medicine
DX: G89.18 Other acute postprocedural pain (principal); R10.84 Generalized abdominal pain; E87.6 Hypokalemia; M24.541 Contracture, right hand; Z87.891 Personal history of nicotine dependence; R11.0 Nausea; M24.542 Contracture, left hand; Z90.49 Acquired absence of other specified parts of digestive tract; R51.9 Headache, unspecified
CPT/HCPCS: 74177; 80053; 83690; 85025; 96361; 96374; 96375; 99285; Q9967; A4216; J2405